=== PATIENT | male | born 1965 | race Caucasian/White ===

== ENCOUNTER 2017-02-21 11:52 | Emergency (ER) | payer MEDICAID, OTHER ==
[~2017-02-21] VITALS: Ht 167.6 cm; Wt 86.2 kg
[~2017-02-21 11:52] MED LIST: BENA40TA2 PO; ESOM40CA PO
[2017-02-21 11:58] VITALS: BP_SYST 161
[2017-02-21 13:39] VITALS: BP_SYST 140
== END 2017-02-21 13:39 | disposition home or self-care (01) ==
LOC: SED 11:52
DX: D17.79 Benign lipomatous neoplasm of other sites (principal); I10 Essential (primary) hypertension
CPT/HCPCS: 99283